=== PATIENT | female | born 2005 | race Asian ===

== ENCOUNTER 2024-11-09 08:52 | Emergency (ER) | payer SELFPAY ==
[~2024-11-09] VITALS: Ht 160 cm; Wt 55.0 kg
[2024-11-09 08:59] VITALS: BP 97/69; TEMP 37.1; O2SAT 98
[2024-11-09 09:03] VITALS: PULSE 93; RESP 18; O2SAT 98
== END 2024-11-09 09:30 | disposition left against medical advice (07) ==
LOC: ER 08:52
DX: R51.9 Headache, unspecified (principal); Z53.21 Procedure and treatment not carried out due to patient leaving prior to being seen by health care provider